=== PATIENT | male | born 1950 | race Caucasian/White ===

== ENCOUNTER 2017-11-13 07:08 | Day surgery (SDC) | payer OTHER, MEDICARE ==
[~2017-11-13 07:08] MED LIST: Midazolam 1 MG/ML 2 ML SDV ONE; Propofol 200 MG/20 ML SDV ONE; fentaNYL 100 MCG/2 ML SDV ONE
[2017-11-13] MEDS ORDERED: Dextrose 5%-Lactated Ringers 1,000 ML IV SCH (08:00)
--- NOTE | 2017-11-22 14:06 | OR ---
DATE OF PROCEDURE: 11/13/2017 PREOPERATIVE DIAGNOSIS: History of colon polyps. POSTOPERATIVE DIAGNOSIS: Normal colonoscopy (no recurrent colon polyps). OPERATIVE PROCEDURE: Flexible colonoscopy. ANESTHESIA: IV sedation. INDICATIONS FOR PROCEDURE: This is a 67-year-old male presenting with a history of colon polyps and a plan for colonoscopy with biopsies and/or polypectomy as indicated. Potential risks including bleeding and perforation were discussed, and the patient wishes to proceed. DETAILS OF PROCEDURE: The patient was taken to the operating room and placed in a left lateral decubitus position. IV sedation was administered, after which the initial digital rectal exam was performed and it was unremarkable. Colonoscope was then passed into the rectum with retroflexion revealing uncomplicated hemorrhoidal columns. The scope was then eventually passed to the level of the cecum. The prep was good with there only being a small amount of liquid stool present. To that level, no abnormalities were noted. Specifically, there were no additional areas of polyp formation or other signs of neoplasia, no diverticula and no areas of colitis. The scope was then withdrawn, the above findings reconfirmed, and the procedure concluded. The patient was taken to the recovery room in satisfactory condition. The recommendation would be to repeat the colonoscopy in 5 years given the history of colon polyps. Gilbert Patel MD /[id number]
== END 2017-11-13 09:52 | disposition home or self-care (01) ==
LOC: JP.SDS 07:08
PROVIDERS: ATTEND Surgery
DX: Z12.11 Encounter for screening for malignant neoplasm of colon (principal); E66.9 Obesity, unspecified; G47.33 Obstructive sleep apnea (adult) (pediatric); Z86.010 Personal history of colon polyps
CPT/HCPCS: 45378; J2250; J2704; J3010; J7042

== ENCOUNTER → 2018-01-05 | Day surgery (SDC) | payer OTHER, MEDICARE ==
[~2018-01-05] MED LIST changes: +Acetaminophen 500 MG Tab PO ONE; +Bupivacaine 0.5%/EPINEPHrine 1:200,000 50 ML MDV ONE; +Dexamethasone 4 MG/ML SDV ONE; +Dextrose 5%-Lactated Ringers 1,000 ML IV SCH; +Glycopyrrolate 0.2 MG/ML 5 ML MDV ONE; +Ketamine 500 MG/5 ML MDV IV SCH; +Ketorolac 60 MG/2 ML SDV IM ONE; +Ketorolac 60 MG/2 ML SDV ONE; +Lactated Ringers 1,000 ML ONE; +Linezolid 200 MG/100 ML Bag IRR ONE; +Meropenem 500 MG SDV ONE; -Midazolam 1 MG/ML 2 ML SDV ONE; +Neostigmine Methylsulfate 1 MG/ML 5 ML Syringe ONE; +Ondansetron 4 MG/2 ML SDV IVPUSH ONE; +Ondansetron 4 MG/2 ML SDV ONE; +Rocuronium 50 MG/5 ML Vial ONE; +Ropivacaine 56 ML, Dexamethasone 8 MG, EPINEPHrine 0.4 MG, Sodium Chloride 0.9% 21.6 ML NERVRT SCH; +Succinylcholine 200 MG/10 ML MDV ONE; +ceFAZolin 2 GM in Premix Bag 1 BAG IV ONE; +ePHEDrine 50 MG/ML SDV ONE; -fentaNYL 100 MCG/2 ML SDV ONE; +fentaNYL 250 MCG/5 ML SDV ONE; +traMADol 50 MG Tab PO ONE
--- NOTE | 2018-01-11 12:34 | OR ---
DATE OF PROCEDURE: 01/05/2018 PREOPERATIVE DIAGNOSIS: Incarcerated umbilical hernia. POSTOPERATIVE DIAGNOSES: 1. Incarcerated umbilical hernia. 2. High risk for adhesions between mesh and underlying viscera. OPERATIVE PROCEDURES: Diagnostic laparoscopy with; 1. Repair of incarcerated umbilical hernia with mesh ([id number]). 2. Placement of Vicryl mesh to displace pelvic and abdominal diamond from underlying viscera to limit recurrent adhesion formation ([id number]). ANESTHESIA: General. RETICLE PRINTER: PAS. Shanae INDICATION FOR PROCEDURE: This is a 67-year-old male presenting with an incarcerated umbilical hernia. The plan is to proceed with a diagnostic laparoscopy with possible laparotomy and repair of the hernia with mesh. Potential risks including bleeding, infection, injury to underlying viscera, possibility of mesh becoming infected or the hernia recurring were all reviewed, and the patient wishes to proceed. DETAILS OF PROCEDURE: The patient was taken to the operating room and placed in a supine position. After general endotracheal anesthesia was induced, a Odom catheter was inserted, and the abdomen was prepped and draped. In the left lateral abdomen, a transverse incision was made. The peritoneal cavity was entered under direct vision with an Optiview trocar and inflated to 15 mmHg pressure with CO2. Laparoscope was reinserted. No underlying trocar insertion site injuries were seen. Following this, 5 mm trocars were placed in the left lower quadrant and left upper quadrant, and general exploration was undertaken. The patient was noted to have some omental adhesions along the area of the hernia and somewhat inferior to that. These were taken down. The hernia was then noted to contain incarcerated omentum within it. Using a combination of blunt and Harmonic scalpel dissection along with external pressure, this was eventually reduced, and the hernia contents including some incarcerated preperitoneal fat were then delivered from the field. At this point, the abdominal wall was mapped out and a Ventralight ST mesh with the balloon positioning system was selected. This was a 20.3 cm ione. After being soaked in antibiotic-containing saline solution, it was placed in the intraperitoneal location. A small stab wound was made just inferior to the umbilicus, and the mesh was pulled up. Balloon was then inflated, thus fixing the mesh up against the abdominal wall. This was then further fixed with absorbable tacking screws placed circumferentially. Once these were in place, the mesh appeared to be well fixed and the balloon was deflated and then withdrawn, leaving the mesh in place. The patient was felt to be at high risk for significant adhesion formation between the underlying viscera and the pelvic and abdominal diamond. Given this, a Vicryl mesh was then placed, this being a 12-inch segment of Vicryl mesh, underneath the area of the hernia as well as some of the previous adhesion formation. This extended down behind the urinary bladder inferiorly along the pelvic sidewalls and up against the abdominal wall, underlying the entire area of the mesh. The scope was then withdrawn. The fascia at the 12-mm trocar site was closed with 0 Vicryl stitch, and the skin with 4-0 Vicryl skin stitch. Dressing was applied. The patient was taken to the recovery room in a satisfactory condition. There were no evident complications. Gilbert Patel MD /[id number]
== END ==
LOC: JP.SDS 06:00
PROVIDERS: ATTEND Surgery
DX: K42.0 Umbilical hernia with obstruction, without gangrene (principal); K66.0 Peritoneal adhesions (postprocedural) (postinfection); E66.9 Obesity, unspecified; E78.00 Pure hypercholesterolemia, unspecified; G47.33 Obstructive sleep apnea (adult) (pediatric); K21.9 Gastro-esophageal reflux disease without esophagitis; F41.8 Other specified anxiety disorders; Z79.82 Long term (current) use of aspirin; Z79.899 Other long term (current) drug therapy; Z99.89 Dependence on other enabling machines and devices
CPT/HCPCS: 49587; 88302; A9270; C1781; J0171; J0330; J0690; J1100; J1885; J2020; J2185; J2405; J2704; J2710; J2795; J3010; J7042; J7050; J7120

== ENCOUNTER 2019-03-31 10:34 | Emergency (ER) | payer MEDICARE, OTHER ==
[2019-03-31] MEDS ORDERED: Aspirin 81 MG Tab.Chew PO ONE (10:45)
[2019-03-31] MEDS ORDERED: Aspirin 81 MG Tab.Chew ONE (10:45)
--- NOTE | 2019-03-31 10:48 | EDM.PDOC ---
ED HPI GENERAL MEDICAL PROBLEM - General Chief Complaint: Chest Pain Stated Complaint: CHEST PAIN Time Seen by Provider: 03/31/19 10:45 Source of Information: Reports: Patient, Family, RN Notes Reviewed History Limitations: Reports: No Limitations - History of Present Illness INITIAL COMMENTS - FREE TEXT/NARRATIVE: 68-year-old gentleman presents emergency department today complaint of chest pain, he states he was out doing yard work about an hour prior developed chest pain stopped rested went away resumed his yard work chest pain returned this time he was diaphoretic he was nauseated and did not really have shortness of breath by the time he arrives to the emergency department he is chest pain-free - Related Data Allergies Allergy/AdvReac Type Severity Reaction Status Date / Time No Known Allergies Allergy Verified 03/31/19 11:15 Home Meds: Home Meds FLUoxetine [PROzac] 20 mg PO DAILY 07/24/14 [History] Rosuvastatin [Crestor] 20 mg PO Q48H 07/24/14 [History] Aspirin [Adult Low Dose Aspirin EC] 81 mg PO DAILY 11/11/17 [History] Folic Acid 1 mg PO DAILY 11/11/17 [History] Methotrexate 15 mg PO ASDIRECTED 11/11/17 [History] Lisinopril 10 mg PO DAILY 03/31/19 [History] Past Medical History HEENT History: Reports: Impaired Vision Cardiovascular History: Reports: High Cholesterol, Hypertension Respiratory History: Reports: Sleep Apnea Gastrointestinal History: Reports: Colon Polyp Other Gastrointestinal History: hernia repair with wire in place Musculoskeletal History: Reports: Arthritis, Fracture, Other (See Below) Other Musculoskeletal History: clavical right wrist Psychiatric History: Reports: Anxiety Endocrine/Metabolic History: Reports: Obesity/BMI 30+ Immunologic History: Reports: Other (See Below) Other Immunologic History: arthrititis - Infectious Disease History Infectious Disease History: Reports: Chicken Pox, Measles, Mumps - Past Surgical History HEENT Surgical History: Reports: Adenoidectomy, Oral Surgery, Tonsillectomy Cardiovascular Surgical History: Reports: None Respiratory Surgical History: Reports: None GI Surgical History: Reports: Colonoscopy, Polypectomy Endocrine Surgical History: Reports: None Musculoskeletal Surgical History: Reports: Arthroscopic Knee Social & Family History - Family History Cardiac: Reports: [place] GI: Reports: Colon Polyps, Other (See Below) Other GI Family History: colon ca - Caffeine Use Caffeine Use: Reports: Tea ED ROS GENERAL - Review of Systems Review Of Systems: See Below Constitutional: Reports: Diaphoresis HEENT: Reports: No Symptoms Respiratory: Denies: Shortness of Breath Cardiovascular: Reports: Chest Pain GI/Abdominal: Reports: Nausea ED EXAM, GENERAL - Physical Exam Exam: See Below Exam Limited By: No Limitations General Appearance: Alert, WD/WN, No Apparent Distress Respiratory/Chest: No Respiratory Distress, Lungs Clear, Normal Breath Sounds, No Accessory Muscle Use, Chest Non-Tender Cardiovascular: Regular Rate, Rhythm, No Murmur GI/Abdominal: Soft, Non-Tender Course - Vital Signs Last Recorded V/S: Last Vital Signs Temp Pulse 56 L 03/31/19 13:15 Resp 19 03/31/19 13:30 BP 217/106 H 03/31/19 13:30 Pulse Ox 97 03/31/19 13:15 - Orders/Labs/Meds Orders: Active Orders 24 hr Category Date Time Status Cardiac Monitoring [RC] .As Directed Care 03/31/19 10:45 Active Cardiac Monitoring [RC] STAT Care 03/31/19 13:28 Ordered Communication Order [RC] Per Unit Routine Care 03/31/19 13:28 Ordered Communication Order [RC] Per Unit Routine Care 03/31/19 13:28 Ordered EKG Documentation Completion [RC] ASDIRECTED Care 03/31/19 10:46 Active Peripheral IV Care [RC] . DIRECTED Care 03/31/19 13:28 Ordered INR,PT,PROTHROMBIN TIME [COAG] Stat Lab 03/31/19 13:28 Ordered PTT,PARTIAL THROMBOPLSTIN TIME [COAG] Stat Lab 03/31/19 13:28 Ordered Heparin Sodium/D5W [Heparin 25,000 Units in D5W 500 ML] Med 03/31/19 13:30 Ordered 25,000 units in 500 ml IV TITRATE Metoprolol Succinate [Toprol XL] Med 03/31/19 13:35 Once 25 mg PO ONETIME ONE Sodium Chloride 0.9% [Saline Flush] Med 03/31/19 13:28 Ordered 10 ml FLUSH ASDIRECTED PRN Peripheral IV Insertion Adult [OM.PC] Stat Oth 03/31/19 13:28 Ordered EKG 12 Lead [EK] Stat Ther 03/31/19 10:46 Ordered Medication Orders Heparin Sodium/Dextrose (Heparin 25,000 Units In D5w 500 Ml) 25,000 units in 500 mls @ 27.216 mls/hr IV TITRATE VICENTE; Protocol Sodium Chloride (Saline Flush) 10 ml FLUSH ASDIRECTED PRN PRN Reason: Keep Vein Open Labs: Laboratory Tests 03/31/19 03/31/19 03/31/19 Range/Units 10:56 10:56 13:00 WBC 7.3 (4.5-11.0) K/uL RBC 5.00 (4.30-5.90) M/uL Hgb 15.0 (12.0-15.0) g/dL Hct 45.5 (40.0-54.0) % MCV 91 (80-98) fL MCH 30 (27-31) pg MCHC 33 (32-36) % Plt Count 266 (150-400) K/uL Neut % (Auto) 65 (36-66) % Lymph % (Auto) 23 L (24-44) % [place] % (Auto) 11 H (2-6) % Eos % (Auto) 1 L (2-4) % Baso % (Auto) 0 (0-1) % Sodium 138 L (140-148) mmol/L Potassium 3.8 (3.6-5.2) mmol/L Chloride 102 (100-108) mmol/L Carbon Dioxide 28 (21-32) mmol/L Anion Gap 11.8 (5.0-14.0) mmol/L BUN 14 (7-18) mg/dL Creatinine 1.0 (0.8-1.3) mg/dL Est Cr Clr Drug Dosing 72.66 mL/min Estimated GFR (MDRD) > 60 (>60) Glucose 98 (74-106) mg/dL Calcium 9.1 (8.5-10.1) mg/dL Total Bilirubin 0.5 (0.2-1.0) mg/dL AST 23 (15-37) U/L ALT 34 (12-78) U/L Alkaline Phosphatase 87 (46-116) U/L CK-MB (CK-2) 1.6 (0-3.6) mg/mL Troponin I < 0.017 0.142 H* (0.000-0.056) ng/mL Total Protein 7.4 (6.4-8.2) g/dL Albumin 3.5 (3.4-5.0) g/dL Globulin 3.9 H (2.3-3.5) g/dL Albumin/Globulin Ratio 0.9 L (1.2-2.2) Meds: Medications Generic Name Dose Route Start Last Admin Trade Name Freq PRN Reason Stop Dose Admin Heparin Sodium/Dextrose 25,000 units in 500 mls @ 27.216 mls/hr 03/31/19 13: 30 Heparin 25,000 Units In D5w 500 Ml IV TITRATE VICENTE Protocol 12 UNITS/KG/HR Sodium Chloride 10 ml 03/31/19 13:28 Saline Flush FLUSH ASDIRECTED PRN Keep Vein Open Discontinued Medications Generic Name Dose Route Start Last Admin Trade Name Freq PRN Reason Stop Dose Admin Aspirin 324 mg 03/31/19 10:45 03/31/19 10:55 Aspirin PO 03/31/19 10:46 324 mg ONETIME ONE Administration Aspirin Confirm 03/31/19 10:45 03/31/19 10:57 Aspirin Administered 03/31/19 10:46 Not Given Dose 324 mg .ROUTE .STK-MED ONE Clopidogrel Bisulfate 300 mg 03/31/19 13:28 Plavix PO 03/31/19 13:29 ONETIME ONE Heparin Sodium (Porcine) 4,000 units 03/31/19 13:28 Heparin Sodium IVPUSH 03/31/19 13:29 ONETIME ONE - Re-Assessments/Exams Free Text/Narrative Re-Assessment/Exam: 03/31/19 12:02 Called and discussed the case with Dr. Madsen cardiology at 11:15 recommended serial troponins and stress test with admission for rule out any positive recommended transfer to [facility] at this time Departure - Departure Time of Disposition: 13:37 Disposition: DC/Tfer to Acute Hospital 02 Reason for Transfer *Q: Primary PCI Indicated Condition: Fair Clinical Impression: Non-STEMI (non-ST elevated myocardial infarction) Referrals: Austen Clemons MD [Primary Care Provider] - Forms: ED Department Discharge - My Orders Last 24 Hours: My Active Orders 03/31/19 10:45 Cardiac Monitoring [RC] .As Directed 03/31/19 10:46 EKG Documentation Completion [RC] ASDIRECTED EKG 12 Lead [EK] Stat 03/31/19 13:28 Cardiac Monitoring [RC] STAT Communication Order [RC] Per Unit Routine Communication Order [RC] Per Unit Routine Peripheral IV Care [RC] . DIRECTED INR,PT,PROTHROMBIN TIME [COAG] Stat PTT,PARTIAL THROMBOPLSTIN TIME [COAG] Stat Sodium Chloride 0.9% [Saline Flush] 10 ml FLUSH ASDIRECTED PRN Peripheral IV Insertion Adult [OM.PC] Stat 03/31/19 13:30 Heparin Sodium/D5W [Heparin 25,000 Units in D5W 500 ML] 25,000 units in 500 ml IV TITRATE 03/31/19 13:35 Metoprolol Succinate [Toprol XL] 25 mg PO ONETIME ONE - Assessment/Plan Last 24 Hours: My Active Orders 03/31/19 10:45 Cardiac Monitoring [RC] .As Directed 03/31/19 10:46 EKG Documentation Completion [RC] ASDIRECTED EKG 12 Lead [EK] Stat 03/31/19 13:28 Cardiac Monitoring [RC] STAT Communication Order [RC] Per Unit Routine Communication Order [RC] Per Unit Routine Peripheral IV Care [RC] . DIRECTED INR,PT,PROTHROMBIN TIME [COAG] Stat PTT,PARTIAL THROMBOPLSTIN TIME [COAG] Stat Sodium Chloride 0.9% [Saline Flush] 10 ml FLUSH ASDIRECTED PRN Peripheral IV Insertion Adult [OM.PC] Stat 03/31/19 13:30 Heparin Sodium/D5W [Heparin 25,000 Units in D5W 500 ML] 25,000 units in 500 ml IV TITRATE 03/31/19 13:35 Metoprolol Succinate [Toprol XL] 25 mg PO ONETIME ONE Plan: Assessment Acuity = acute Site and laterality = non-ST elevation myocardial infarction Etiology = probable underlying coronary artery disease Manifestations = none] Location of injury = Home Lab values = CBC, CMP, initial troponin all negative CK-MB negative EKG shows no sign of ischemia chest x-ray unremarkable, troponin 2 hours later from the initial draw 11 AM did increase to 0.147, negative reading consistent with non- ST elevation myocardial infarction Plan Called discussed case with Dr. Spaulding at 1330 kindly accepted the patient transported he was given aspirin initially on arrival started Plavix 300 mg 1 4000 unit bolus heparin followed by heparin drip in route 25 mg metoprolol by mouth as well he'll be transported via EMS ground This note was dictated using [employer] voice recognition software please call with any questions on syntax or grammar.
--- NOTE | 2019-03-31 11:34 | CRLCR ---
INDICATION: Chest pain. TECHNIQUE: AP portable chest x-ray. FINDINGS: Heart size normal. Old right clavicular fracture. AC and platelike opacity in the lower chest bilaterally may be in part related to overlying chest wall density but a component of likely related combination of atelectasis, scarring and possible infiltrate cannot be excluded. Pulmonary vascularity in the upper lungs is mildly increased suggesting mild pulmonary venous congestion. Probable calcified granuloma in the left lower lateral lung. Old rib fractures. Chest otherwise unremarkable. Dictated by Christiano Torres MD @ Mar 31 2019 11:30AM Signed by Dr. Christiano Torres @ Mar 31 2019 11:32AM
[2019-03-31] MEDS ORDERED: Heparin Sodium 5,000 Units/ML Vial IVPUSH ONE (13:28)
[2019-03-31] MEDS ORDERED: Sodium Chloride 0.9% 10 ML Syringe FLUSH PRN (13:28)
[2019-03-31] MEDS ORDERED: Clopidogrel 75 MG Tab PO ONE (13:28)
[2019-03-31] MEDS ORDERED: Heparin Sodium/D5W 25,000 UNITS/500 ML BAG IV SCH (13:30)
[2019-03-31] MEDS ORDERED: Metoprolol Succinate 25 MG Tab.ER PO ONE (13:35)
[2019-03-31] MEDS ORDERED: Metoprolol Tartrate 25 MG Tab PO ONE (13:49)
== END 2019-03-31 14:30 ==
LOC: JP.ED 10:34
DX: I21.4 Non-ST elevation (NSTEMI) myocardial infarction (principal); E78.00 Pure hypercholesterolemia, unspecified; I10 Essential (primary) hypertension; F41.9 Anxiety disorder, unspecified; Z79.899 Other long term (current) drug therapy; Z79.82 Long term (current) use of aspirin
CPT/HCPCS: 36415; 71045; 80053; 82553; 84484; 85025; 85610; 85730; 93005; 96365; 99285; A9270; J1644

== ENCOUNTER 2021-02-12 22:00 | Emergency (ER) | payer OTHER ==
[2021-02-12] MEDS ORDERED: Acetaminophen 325 MG Tab PO ONE (23:27)
[2021-02-13] MEDS ORDERED: Mupirocin Oint 22 GM Tube TOP ONE (00:37)
--- NOTE | 2021-02-13 00:43 | EDM.PDOC ---
ED HPI GENERAL MEDICAL PROBLEM - General Chief Complaint: Skin Complaint Stated Complaint: FEVER, CHILLS, CHEST PAIN Time Seen by Provider: 02/12/21 23:20 Source of Information: Reports: Patient, Family History Limitations: Reports: No Limitations - History of Present Illness INITIAL COMMENTS - FREE TEXT/NARRATIVE: Presents emergency room today secondary to concern about a possible insect bite or sting that has gotten secondary infection patient states that Thursday morning while mowing he felt something on his left anterior chest shoulder area he did not see any insect or bug at the time he noticed that there were couple little small blisters in the area and then yesterday he noted it started having a pustular appearance today he had size increased of greater than 3 times that include spreading erythema he states that his shoulder chest wall area there is a throbbing pain rated 5 out of 10 he has been using Bactroban topically and he also states he has had chills. Significance patient has an immune inflammatory disease in which he uses methotrexate last dose was taken on Thursday. PMH/Meds--reviewed in EMR NKDA Tob/Drug--denies EtOH--rare bug bite Pain Score (Numeric/FACES): 5 - Related Data Allergies Allergy/AdvReac Type Severity Reaction Status Date / Time No Known Allergies Allergy Verified 02/12/21 22:27 Home Meds: Home Meds FLUoxetine [PROzac] 20 mg PO DAILY 07/24/14 [History] Rosuvastatin [Crestor] 40 mg PO DAILY 07/24/14 [History] Aspirin [Adult Low Dose Aspirin EC] 81 mg PO DAILY 11/11/17 [History] Folic Acid 1 mg PO DAILY 11/11/17 [History] Methotrexate 15 mg PO ASDIRECTED 11/11/17 [History] Ezetimibe [Zetia] 10 mg PO DAILY 02/12/21 [History] Lisinopril/Hydrochlorothiazide [Lisinopril-Hctz 20-25 mg Tab] 1 tab PO DAILY 02/12/21 [History] Past Medical History HEENT History: Reports: Impaired Vision Other HEENT History: two vitrial bleeds Cardiovascular History: Reports: High Cholesterol, Hypertension, PR, Stents, Other (See Below) Respiratory History: Reports: Sleep Apnea, Other (See Below) Other Respiratory History: Cpap Gastrointestinal History: Reports: Colon Polyp Other Gastrointestinal History: hernia repair with wire in place Musculoskeletal History: Reports: Arthritis, Fracture, Other (See Below) Other Musculoskeletal History: clavical right wrist. inflammitory arthritis Psychiatric History: Reports: Anxiety Endocrine/Metabolic History: Reports: Obesity/BMI 30+ Hematologic History: Reports: Other (See Below) Other Hematologic History: Bruises easily Immunologic History: Reports: Other (See Below) Other Immunologic History: arthrititis Dermatologic History: Reports: Cellulitis - Infectious Disease History Infectious Disease History: Reports: Chicken Pox, Measles, Mumps - Past Surgical History HEENT Surgical History: Reports: Adenoidectomy, Oral Surgery, Tonsillectomy Cardiovascular Surgical History: Reports: None, Coronary Artery Stent, Other (See Below) Other Cardiovascular Surgeries/Procedures: x2 cardiac stents Respiratory Surgical History: Reports: None GI Surgical History: Reports: Colonoscopy, Polypectomy Endocrine Surgical History: Reports: None Musculoskeletal Surgical History: Reports: Arthroscopic Knee, Other (See Below) Other Musculoskeletal Surgeries/Procedures:: bilateral knee arthroscopy Social & Family History - Family History Family Medical History: No Pertinent Family History Cardiac: Reports: PR GI: Reports: Colon Polyps, Other (See Below) Other GI Family History: colon ca - Tobacco Use Tobacco Use Status *Q: Never Tobacco User - Caffeine Use Caffeine Use: Reports: None - Recreational Drug Use Recreational Drug Use: No ED ROS GENERAL - Review of Systems Review Of Systems: Comprehensive ROS is negative, except as noted in HPI. Constitutional: Reports: Chills Skin: Reports: Erythema, Wound, Lesions ED EXAM, SKIN/RASH Exam: See Below Exam Limited By: No Limitations General Appearance: Alert, WD/WN, Mild Distress Eye Exam: Bilateral Eye: EOMI, Normal Inspection Ears: Normal External Exam Nose: Normal Inspection Throat/Mouth: Normal Inspection, Normal Voice, No Airway Compromise Head: Atraumatic, Normocephalic Neck: Normal Inspection, Supple, Full Range of Motion Respiratory/Chest: No Respiratory Distress, Lungs Clear, Normal Breath Sounds Cardiovascular: Regular Rate, Rhythm, No Edema, No Murmur (Male) Exam: Deferred Rectal (Males) Exam: Deferred Back Exam: Normal Inspection, Full Range of Motion Extremities: Normal Inspection, Normal Range of Motion, Normal Capillary Refill Neurological: Alert, Oriented, Normal Cognition Psychiatric: Normal Affect, Normal Mood Skin: Warm, Dry, No Rash, Other (Patient with noted wound inner diameter is 1- 1/2 x 2 cm outer erythema is noted to be 5 cm x 7 cm the inner area does have a darker purplish discoloration and I&D was attempted there was no drainage expressed area of I&D is firm to rated in nature culture was obtained) ED SKIN PROCEDURES - I&D Site: left upper chest wall/shoulder Skin Prep: Providone-Iodine (Betadine) Local Anesthesia: Lidocaine: 1% Plain (2cc) Local Anesthetic Volume: 2cc Area Incised With: 11 Blade Drainage: Bloody Probed to Break Up Loculations: Yes Packed With: None Progress/Comments: attempted I&D of central area, no central fluid collection found even with attempted probing--tissue was thickened/indurated in nature, had bloody drainage more likely related to [id number] of skin surface than from any pocket of fluid collection Course - Vital Signs Text/Narrative:: We will start patient on Bactrim DS for induration and erythema that is noted recommend that he follow-up in the clinic in the next 2 to 3 days before the weekend continue to use Bactroban ointment topically 2-3 times a day covered with dressing Tylenol or ibuprofen for any body aches chills or fevers lysed understanding agree with plan of care ready for discharge Last Recorded V/S: Last Vital Signs Temp 101.3 F H 02/12/21 23:35 Pulse 87 02/12/21 23:35 Resp 15 02/12/21 23:35 BP 132/61 02/12/21 23:35 Pulse Ox 97 02/12/21 23:35 - Orders/Labs/Meds Orders: Active Orders 24 hr Category Date Time Status CULTURE WOUND + SMEAR [RM] Stat Lab 02/12/21 23:27 Ordered Mupirocin Oint [Bactroban Oint] Med 02/13/21 00:37 Once 1 gm TOP ONETIME ONE Medication Orders Mupirocin (Mupirocin Oint 22 Gm Tube) 1 gm TOP ONETIME ONE Stop: 02/13/21 00:38 Meds: Medications Generic Name Dose Route Start Last Admin Trade Name Freq PRN Reason Stop Dose Admin Mupirocin 1 gm 02/13/21 00:37 Mupirocin Oint 22 Gm Tube TOP 02/13/21 00:38 ONETIME ONE Discontinued Medications Generic Name Dose Route Start Last Admin Trade Name Freq PRN Reason Stop Dose Admin Acetaminophen 650 mg 02/12/21 23:27 02/12/21 23:34 Acetaminophen 325 Mg Tab PO 02/12/21 23:28 650 mg NOW ONE Administration Lidocaine HCl 5 ml 02/12/21 23:28 02/12/21 23:34 Lidocaine 1% 5 Ml Sdv INJECT 02/12/21 23:29 5 ml ONETIME ONE Administration Departure - Departure Time of Disposition: 00:47 Disposition: Home, Self-Care 01 Condition: Good Clinical Impression: Cellulitis of chest wall, Bug bite with infection - Discharge Information *PRESCRIPTION DRUG MONITORING PROGRAM REVIEWED*: Not Applicable *COPY OF PRESCRIPTION DRUG MONITORING REPORT IN PATIENT RAISSA: Not Applicable Instructions: Cellulitis, Adult, [id number] Referrals: Austen Clemons MD [Primary Care Provider] - Additional Instructions: Bactriban topically 2-3 times a day to wound, cover with dressing/bandage Bactrim DS twice daily for the next 10 days, a culture was attempted and results may be available in the next 2-3 days Follow up in the clinic in the next 2-3 days (before the weekend for re- evaluation of wound) Sepsis Event Note (ED) - Evaluation Sepsis Screening Result: No Definite Risk - Focused Exam Vital Signs: Vital Signs Temp Pulse Resp BP Pulse Ox 02/12/21 23:35 101.3 F H 87 15 132/61 97 02/12/21 22:30 98.2 F 79 16 164/60 H 97 02/12/21 22:27 98.2 F 79 16 164/60 H 97 - My Orders Last 24 Hours: My Active Orders 02/12/21 23:27 CULTURE WOUND + SMEAR [RM] Stat 02/13/21 00:37 Mupirocin Oint [Bactroban Oint] 1 gm TOP ONETIME ONE - Assessment/Plan Last 24 Hours: My Active Orders 02/12/21 23:27 CULTURE WOUND + SMEAR [RM] Stat 02/13/21 00:37 Mupirocin Oint [Bactroban Oint] 1 gm TOP ONETIME ONE
== END 2021-02-13 00:55 | disposition home or self-care (01) ==
LOC: JP.ED 22:00
DX: S20.362A Insect bite (nonvenomous) of left front wall of thorax, initial encounter (principal); L03.313 Cellulitis of chest wall; E78.00 Pure hypercholesterolemia, unspecified; I10 Essential (primary) hypertension; I25.2 Old myocardial infarction; M19.90 Unspecified osteoarthritis, unspecified site; E66.9 Obesity, unspecified; Z68.33 Body mass index [BMI] 33.0-33.9, adult; Z79.82 Long term (current) use of aspirin; Z79.899 Other long term (current) drug therapy; W57.XXXA Bitten or stung by nonvenomous insect and other nonvenomous arthropods, initial encounter
CPT/HCPCS: 10061; 87070; 87205; 99283; A9270

== ENCOUNTER 2023-03-30 05:55 | Day surgery (SDC) | payer MEDICARE ==
[2023-03-30] MEDS: Dextrose 5%-Lactated Ringers 1,000 ML IV SCH (06:54)
[2023-03-30] MEDS ORDERED: Midazolam 1 MG/ML 2 ML SDV ONE ×2 (07:16→07:20)
[2023-03-30] MEDS ORDERED: fentaNYL 50 MCG/ML SDV ONE ×2 (07:16→07:20)
[2023-03-30] MEDS ORDERED: Propofol 200 MG/20 ML SDV ONE ×2 (07:16→07:20)
== END 2023-03-30 09:30 | disposition home or self-care (01) ==
LOC: JP.SDS 05:55
PROVIDERS: ATTEND Surgery
DX: Z12.11 Encounter for screening for malignant neoplasm of colon (principal); G47.33 Obstructive sleep apnea (adult) (pediatric); F32.A Depression, unspecified; F41.9 Anxiety disorder, unspecified; Z86.010 Personal history of colon polyps; Z80.0 Family history of malignant neoplasm of digestive organs; Z88.8 Allergy status to other drugs, medicaments and biological substances
CPT/HCPCS: G0105; J2250; J2704; J3010; J7121